=== PATIENT | male | born 1955 | race Caucasian/White ===

== ENCOUNTER 2017-11-24 10:54 | Emergency (ER) | payer MEDICARE, MEDICAID ==
[~2017-11-24] VITALS: Ht 185.4 cm; Wt 81.0 kg
[~2017-11-24 10:54] MED LIST: BLOO1EAC70 MC; BUDE10.23 IH; LANTUS SQ; METF-517 PO; METH4TAB3 PO; METH500T PO; [UNRECOGNIZED DRUG - CODE]
[2017-11-24] MEDS ORDERED: ondansetron/PF 4mg/2ml inj IV ONE (11:05)
[2017-11-24] MEDS ORDERED: normal saline 1000ML IV soln IVB ONE (11:05)
[2017-11-24] MEDS ORDERED: INSU100V12 SQ (11:26)
[2017-11-24 11:39] LABS: BASOPHILS % (AUTO) 0.4 % (0-1); EOSINOPHILS # (AUTO) 0.1 X10'3 (0-0.9); EOSINOPHILS % (AUTO) 0.7 % (0-6); HEMATOCRIT 43.4 % (42.0-52.0); HEMOGLOBIN 14.8 g/dl (14.0-17.9); LYMPHOCYTES # (AUTO) 0.7 X10'3 (1.1-4.8); LYMPHOCYTES % (AUTO) 7.3 % (21-51); MEAN CORPUSCULAR HEMOGLOBIN 30.1 PG (27.0-31.0); MEAN CORPUSCULAR HGB CONC 34.2 % (33.0-36.5); MEAN CORPUSCULAR VOLUME 87.9 FL (78-98); MEAN PLATELET VOLUME 9.5 FL (7.4-10.4); MONOCYTES # (AUTO) 0.7 X10'3 (0-0.9); MONOCYTES % (AUTO) 7.4 % (2-12); NEUTROPHILS # (AUTO) 7.6 X10'3 (1.8-7.7); NEUTROPHILS % (AUTO) 84.2 % (42-75); PLATELET COUNT 74 X10'3 (140-440); RED BLOOD COUNT 4.93 X10'6 (4.70-6.10); RED CELL DISTRIBUTION WIDTH 13.7 % (11.5-14.5)
[2017-11-24 11:46] LABS: CLARITY,URINE CLOUDY (Clear); COLOR,URINE YELLOW (Yellow); GLUCOSE, URINE 250 mg/dl (Neg); KETONES,URINE NEGATIVE (Neg); LEUKOCYTE ESTERASE ,URINE MODERATE (Neg); NITRITES, URINE POSITIVE (Neg); OCCULT BLOOD,URINE LARGE (Neg); PROTEIN,URINE 100 mg/dl (Neg)
[2017-11-24 11:52] LABS: ALANINE AMINOTRANSFERASE 71 U/L (12-78); ALBUMIN 2.9 G/DL (3.4-5.0); ALBUMIN/GLOBULIN RATIO 0.7 (1.1-1.5); ALKALINE PHOSPHATASE 194 IU/L (46-116); ANION GAP 8 (8-16); ASPARTATE AMINO TRANSFERASE 41 U/L (10-37); BILIRUBIN,TOTAL 2.1 MG/DL (0.1-1.0); BLOOD UREA NITROGEN 12 MG/DL (7-18); BUN/CREATININE RATIO 17.1 (5.4-32.0); CALCIUM 8.7 MG/DL (8.5-10.1); CHLORIDE 97 MMOL/L (99-107); GLUCOSE 276 MG/DL (70-104); LIPASE 150 U/L (73-393); SODIUM 133 MMOL/L (135-145); TOTAL CARBON DIOXIDE 28.3 MMOL/L (24-32); TOTAL PROTEIN 7.2 G/DL (6.4-8.2); eGFR > 90 ML/MIN
[2017-11-24 11:55] LABS: UA COLLECTION TYPE CLN CATCH MIDSTREAM
[2017-11-24 11:58] LABS: BACTERIA,URINE 4+ /HPF (Neg); SQUAMOUS EPITHELIAL CELL,UR FEW /LPF (FEW)
[2017-11-24 11:59] LABS: WBC,URINE TNTC /HPF (0-4)
[2017-11-24] MEDS ORDERED: CefTRIAXone 2gm/NS 100ml IVPB 100 ML IV ONE (12:00)
[2017-11-24 12:02] LABS: GIANT PLATELET FEW; LARGE PLATELETS FEW; PLATELET ESTIMATE DECREASED
[2017-11-24] MEDS ORDERED: HYDR-3965 PO (12:55)
[2017-11-24] MEDS ORDERED: CEPH500C5 PO (12:55)
[2017-11-24] MEDS ORDERED: ONDA4TAB12 PO (12:55)
[2017-11-24 13:05] VITALS: BP 139/69
== END 2017-11-24 13:25 | disposition home or self-care (01) ==
LOC: ER 10:54
DX: N12 Tubulo-interstitial nephritis, not specified as acute or chronic (principal); J44.9 Chronic obstructive pulmonary disease, unspecified; E11.9 Type 2 diabetes mellitus without complications; Z86.14 Personal history of Methicillin resistant Staphylococcus aureus infection; Z87.891 Personal history of nicotine dependence; Z90.49 Acquired absence of other specified parts of digestive tract; Z79.4 Long term (current) use of insulin; Z79.84 Long term (current) use of oral hypoglycemic drugs
CPT/HCPCS: 36415; 74176; 80053; 81001; 83690; 85025; 87077; 87088; 87186; 96361; 96365; 96375; 99285; J0696; J2270; J2405

== ENCOUNTER 2017-12-20 18:55 | Emergency (ER) | payer MEDICARE, MEDICAID ==
[~2017-12-20] VITALS: Ht 185.4 cm; Wt 84.0 kg
[~2017-12-20 18:55] MED LIST changes: -BUDE10.23 IH; +CEPH500C5 PO; +HYDR-3965 PO; +INSU100V12 SQ; -LANTUS SQ; -METH4TAB3 PO; -METH500T PO; +ONDA4TAB12 PO
[2017-12-20] MEDS ORDERED: ondansetron 4mg rapidly disintigrating tab PO ONE (20:15)
[2017-12-20] MEDS ORDERED: acetaminophen 325mg tablet PO ONE (20:15)
[2017-12-20] MEDS ORDERED: HYDR-3965 PO (20:56)
[2017-12-20] MEDS ORDERED: METH500T PO (20:56)
[2017-12-20] MEDS ORDERED: ONDA4TAB9 SL (20:56)
[2017-12-20 21:03] VITALS: BP 124/97
== END 2017-12-20 21:06 | disposition home or self-care (01) ==
LOC: ER 18:56
DX: S06.0X9A Concussion with loss of consciousness of unspecified duration, initial encounter (principal); S20.211A Contusion of right front wall of thorax, initial encounter; J44.9 Chronic obstructive pulmonary disease, unspecified; F32.9 Major depressive disorder, single episode, unspecified; E11.9 Type 2 diabetes mellitus without complications; M54.2 Cervicalgia; M79.604 Pain in right leg; M25.511 Pain in right shoulder; Z86.19 Personal history of other infectious and parasitic diseases; Z79.4 Long term (current) use of insulin; Y08.89XA Assault by other specified means, initial encounter; Y93.01 Activity, walking, marching and hiking; Y92.89 Other specified places as the place of occurrence of the external cause; Y99.8 Other external cause status
CPT/HCPCS: 70450; 71101; 99284

== ENCOUNTER 2018-10-02 12:25 | Emergency (ER) | payer MEDICARE, MEDICAID ==
[~2018-10-02] VITALS: Ht 185.4 cm; Wt 79.0 kg
[~2018-10-02 12:25] MED LIST changes: -HYDR-3965 PO; +METH500T PO
[2018-10-02 13:50] VITALS: BP 129/90
[2018-10-02] MEDS ORDERED: silver nitrate applicator stick TP ONE (14:30)
[2018-10-02] MEDS ORDERED: SULF1TAB49 PO (14:47)
== END 2018-10-02 15:00 | disposition home or self-care (01) ==
LOC: ER 12:26
DX: L08.9 Local infection of the skin and subcutaneous tissue, unspecified (principal); J44.9 Chronic obstructive pulmonary disease, unspecified; E11.9 Type 2 diabetes mellitus without complications; Z56.0 Unemployment, unspecified; Z90.49 Acquired absence of other specified parts of digestive tract; Z98.890 Other specified postprocedural states; Z86.14 Personal history of Methicillin resistant Staphylococcus aureus infection; Z79.4 Long term (current) use of insulin
CPT/HCPCS: 99284

== ENCOUNTER 2018-10-26 14:09 | Emergency (ER) | payer MEDICARE, MEDICAID ==
[~2018-10-26] VITALS: Ht 185.4 cm; Wt 63.0 kg
[2018-10-26] MEDS ORDERED: SULF1TAB49 PO (15:08)
[2018-10-26 15:15] VITALS: BP 146/83
[2018-10-26 15:43] LABS: CLARITY,URINE CLEAR (Clear); COLOR,URINE YELLOW (Yellow); GLUCOSE, URINE >=1000 mg/dl (Neg); KETONES,URINE NEGATIVE (Neg); LEUKOCYTE ESTERASE ,URINE NEGATIVE (Neg); NITRITES, URINE NEGATIVE (Neg); OCCULT BLOOD,URINE NEGATIVE (Neg); PROTEIN,URINE NEGATIVE (Neg); UROBILINOGEN,URINE 0.2 E.U/dL (0.2-1.0)
[2018-10-26 15:45] LABS: UA COLLECTION TYPE CLN CATCH MIDSTREAM
[2018-10-26 15:47] LABS: BACTERIA,URINE NONE SEEN /HPF (Neg); MUCUS STRANDS NONE SEEN /LPF (Neg); RBC,URINE 0-2 /HPF (0-2); SQUAMOUS EPITHELIAL CELL,UR NONE SEEN /LPF (FEW); WBC,URINE 0-4 /HPF (0-4)
== END 2018-10-26 15:16 | disposition home or self-care (01) ==
LOC: ER 14:10
DX: L08.89 Other specified local infections of the skin and subcutaneous tissue (principal); N50.89 Other specified disorders of the male genital organs; J44.9 Chronic obstructive pulmonary disease, unspecified; B19.20 Unspecified viral hepatitis C without hepatic coma; E11.9 Type 2 diabetes mellitus without complications; Z86.14 Personal history of Methicillin resistant Staphylococcus aureus infection; Z90.49 Acquired absence of other specified parts of digestive tract; Z98.890 Other specified postprocedural states; Z56.0 Unemployment, unspecified; Z79.4 Long term (current) use of insulin; Z79.899 Other long term (current) drug therapy
CPT/HCPCS: 81001; 99283

== ENCOUNTER 2018-12-23 07:29 | Day surgery (SDC) | payer MEDICARE, MEDICAID ==
[2018-12-21 11:35] LABS: BASOPHILS % (AUTO) 1.1 % (0-1); EOSINOPHILS # (AUTO) 0.1 X10'3 (0-0.9); EOSINOPHILS % (AUTO) 2.6 % (0-6); HEMATOCRIT 42.8 % (42.0-52.0); HEMOGLOBIN 14.9 g/dl (14.0-17.9); LYMPHOCYTES # (AUTO) 0.4 X10'3 (1.1-4.8); MEAN CORPUSCULAR HEMOGLOBIN 30.4 PG (27.0-31.0); MEAN CORPUSCULAR HGB CONC 34.9 % (33.0-36.5); MEAN CORPUSCULAR VOLUME 87.1 FL (78-98); MEAN PLATELET VOLUME 9.6 FL (7.4-10.4); MONOCYTES # (AUTO) 0.2 X10'3 (0-0.9); MONOCYTES % (AUTO) 6.5 % (2-12); NEUTROPHILS % (AUTO) 73.8 % (42-75); PLATELET COUNT 57 X10'3 (140-440); RED BLOOD COUNT 4.91 X10'6 (4.70-6.10); RED CELL DISTRIBUTION WIDTH 13.6 % (11.5-14.5); WHITE BLOOD COUNT 2.8 X10'3 (4.5-11.0)
[2018-12-21 11:37] LABS: ALANINE AMINOTRANSFERASE 100 U/L (12-78); ALBUMIN 3.2 G/DL (3.4-5.0); ALBUMIN/GLOBULIN RATIO 0.8 (1.1-1.5); ALKALINE PHOSPHATASE 157 IU/L (46-116); ANION GAP 9 (8-16); ASPARTATE AMINO TRANSFERASE 69 U/L (10-37); BILIRUBIN,TOTAL 0.9 MG/DL (0.1-1.0); BLOOD UREA NITROGEN 15 MG/DL (7-18); BUN/CREATININE RATIO 21.4 (5.4-32.0); CALCIUM 8.9 MG/DL (8.5-10.1); CHLORIDE 100 MMOL/L (99-107); GLUCOSE 393 MG/DL (70-104); PARTIAL THROMBOPLASTIN TIME 25 SECONDS (22-32); POTASSIUM 3.9 MMOL/L (3.5-5.1); PROTHROMBIN TIME 10.4 SECONDS (9.0-12.0); SODIUM 137 MMOL/L (135-145); TOTAL CARBON DIOXIDE 28.2 MMOL/L (24-32); TOTAL PROTEIN 7.2 G/DL (6.4-8.2); eGFR > 90 ML/MIN
[2018-12-21 11:55] LABS: PLATELET ESTIMATE DECREASED; TOTAL CELLS COUNTED 100
[2018-12-23] VITALS (11 sets, daily range): BP systolic 116–148; BP diastolic 71–98
[~2018-12-23] VITALS: Ht 185.4 cm; Wt 84.4 kg
[~2018-12-23 07:29] MED LIST changes: -CEPH500C5 PO
[2018-12-23] MEDS ORDERED: fentaNYL/PF 50MCG/1 ML 2ML syringe ONE (09:34)
[2018-12-23] MEDS ORDERED: iohexol 350 MG/ML 50ML vial IV ONE (09:34)
[2018-12-23] MEDS ORDERED: midazolam 2 mg/2 ml injection ONE ×2 (09:34→10:27)
[2018-12-23] MEDS ORDERED: iohexol 350MG/ML 100ml bottle IV ONE (09:34)
[2018-12-23] MEDS ORDERED: LIDOcaine 1% (10mg/ml)w/preservative injection 20ml MDV ONE (09:35)
[2018-12-23] MEDS ORDERED: insulin Lispro (HumaLOG) vial - multi-dose SQ SCH (09:45)
[2018-12-23] MEDS ORDERED: dextrose ORAL solution 15 GM/59 ML bottle PO PRN ×2 (09:45)
[2018-12-23] MEDS ORDERED: nitroGLYCERIN 0.4mg SUBLingual tab SL PRN (09:45)
[2018-12-23] MEDS ORDERED: dextrose 50%-water 50ml dispensing syringe IV PRN ×2 (09:45)
[2018-12-23] MEDS ORDERED: LORazepam 0.5 MG tablet PO PRN (09:45)
[2018-12-23] MEDS ORDERED: insulin regular, human vial - multi-dose SQ SCH (09:45)
[2018-12-23] MEDS ORDERED: diphenhydrAMINE 25mg capsule PO PRN (09:45)
[2018-12-23] MEDS ORDERED: normal saline 1000ml 1,000 ML IV SCH (09:45)
[2018-12-23] MEDS ORDERED: glucagon, human recombinant 1mg kit SUBCUT PRN (09:45)
[2018-12-23] MEDS ORDERED: METO-539 PO (10:09)
[2018-12-23] MEDS ORDERED: ACET-2119 PO (10:09)
[2018-12-23] MEDS ORDERED: INSU100V12 SQ (10:09)
[2018-12-23] MEDS ORDERED: metoprolol tartrate 1mg/ml inj IV ONE (10:09)
[2018-12-23] MEDS ORDERED: HYDROcodone/acetaminophen 5mg/325mg tablet PO PRN (11:20)
[2018-12-23] MEDS ORDERED: HYDROcodone/acetaminophen 10/325mg tab PO PRN (11:20)
[2018-12-23] MEDS ORDERED: ondansetron/PF 4mg/2ml inj IV PRN (11:20)
[2018-12-23] MEDS ORDERED: OXAZEpam 15mg capsule PO PRN (11:20)
[2018-12-23] MEDS ORDERED: sodium chloride 0.45% 1,000 ML IV ONE (11:20)
[2018-12-23] MEDS ORDERED: proCHLORperazine 10 MG/2 ml inj IV PRN (11:20)
--- NOTE | 2018-12-23 13:58 | NUR ---
CORRECTION, CHECKED PT BS BASED ON TIME SCHEDULE BUT BS WAS NOT DUE. NO INSULIN ADMINISTERED AT THIS TIME DUE TO PT ATE ONLY 45 MIN AGO AND ADMINISTRATION OF HUMULIN WAS GIVEN AT 1140.
[2018-12-23] MEDS ORDERED: insulin glargine (Lantus) pen - multi-dose SQ SCH (21:00)
== END 2018-12-23 16:55 | disposition home or self-care (01) ==
LOC: SSTAY O 07:29
PROVIDERS: ATTEND Internal Medicine Cardiovascular Disease
DX: I25.10 Atherosclerotic heart disease of native coronary artery without angina pectoris (principal); I42.8 Other cardiomyopathies; E11.9 Type 2 diabetes mellitus without complications; J44.9 Chronic obstructive pulmonary disease, unspecified; I47.1 Supraventricular tachycardia; I77.810 Thoracic aortic ectasia; N49.2 Inflammatory disorders of scrotum; M47.819 Spondylosis without myelopathy or radiculopathy, site unspecified; F10.21 Alcohol dependence, in remission; F32.9 Major depressive disorder, single episode, unspecified; Z79.4 Long term (current) use of insulin; Z87.891 Personal history of nicotine dependence; Z90.49 Acquired absence of other specified parts of digestive tract; Z79.84 Long term (current) use of oral hypoglycemic drugs; Z86.14 Personal history of Methicillin resistant Staphylococcus aureus infection; Z86.19 Personal history of other infectious and parasitic diseases; Z79.891 Long term (current) use of opiate analgesic; Z79.899 Other long term (current) drug therapy; Z98.890 Other specified postprocedural states
CPT/HCPCS: 36415; 71046; 80053; 82948; 83880; 85025; 85610; 85730; 93458; 99152; 99153; C1760; J1644; J2001; J2250; J3010; Q0163; Q9967; A4620; C1769; J1815; J3490; J7030

== ENCOUNTER 2019-01-12 16:03 | Emergency (ER) | payer MEDICARE, MEDICAID ==
[~2019-01-12] VITALS: Ht 185.4 cm; Wt 81.4 kg
[~2019-01-12 16:03] MED LIST changes: +ACET-2119 PO; -BLOO1EAC70 MC; -METH500T PO; +METO-539 PO; -ONDA4TAB12 PO; -[UNRECOGNIZED DRUG - CODE]
[2019-01-12 16:13] VITALS: BP 127/95
[2019-01-12 17:24] LABS: BASOPHILS # (AUTO) 0.1 X10'3 (0-0.2); BASOPHILS % (AUTO) 1.1 % (0-1); EOSINOPHILS # (AUTO) 0.1 X10'3 (0-0.9); EOSINOPHILS % (AUTO) 1.1 % (0-6); HEMATOCRIT 40.6 % (42.0-52.0); HEMOGLOBIN 14.1 g/dl (14.0-17.9); LYMPHOCYTES # (AUTO) 0.7 X10'3 (1.1-4.8); LYMPHOCYTES % (AUTO) 11.8 % (21-51); MEAN CORPUSCULAR HEMOGLOBIN 29.6 PG (27.0-31.0); MEAN CORPUSCULAR HGB CONC 34.8 g/dL (33.0-36.5); MEAN CORPUSCULAR VOLUME 85.2 FL (78-98); MEAN PLATELET VOLUME 9.3 FL (7.4-10.4); MONOCYTES # (AUTO) 0.4 X10'3 (0-0.9); MONOCYTES % (AUTO) 7.4 % (2-12); NEUTROPHILS # (AUTO) 4.5 X10'3 (1.8-7.7); NEUTROPHILS % (AUTO) 78.6 % (42-75); PLATELET COUNT 83 X10'3 (140-440); RED BLOOD COUNT 4.77 X10'6 (4.70-6.10); RED CELL DISTRIBUTION WIDTH 13.5 % (11.5-14.5); WHITE BLOOD COUNT 5.7 X10'3 (4.5-11.0)
[2019-01-12 17:26] LABS: INR 1.1 INR; PARTIAL THROMBOPLASTIN TIME 25 SECONDS (22-32); PROTHROMBIN TIME 10.7 SECONDS (9.0-12.0)
[2019-01-12 17:36] LABS: ALANINE AMINOTRANSFERASE 52 U/L (12-78); ALBUMIN 2.9 G/DL (3.4-5.0); ALBUMIN/GLOBULIN RATIO 0.7 (1.1-1.5); ALKALINE PHOSPHATASE 158 IU/L (46-116); ANION GAP 10 (8-16); ASPARTATE AMINO TRANSFERASE 43 U/L (10-37); BILIRUBIN,TOTAL 1.3 MG/DL (0.1-1.0); BLOOD UREA NITROGEN 14 MG/DL (7-18); BUN/CREATININE RATIO 20.9 (5.4-32.0); CALCIUM 8.6 MG/DL (8.5-10.1); CHLORIDE 101 MMOL/L (99-107); CREATININE 0.67 MG/DL (0.60-1.10); GLUCOSE 173 MG/DL (70-104); POTASSIUM 3.4 MMOL/L (3.5-5.1); SODIUM 138 MMOL/L (135-145); TOTAL CARBON DIOXIDE 27.4 MMOL/L (24-32); TOTAL PROTEIN 7.2 G/DL (6.4-8.2); eGFR > 90 ML/MIN
[2019-01-12] MEDS ORDERED: LEVO500T2 PO (17:47)
[2019-01-12] MEDS ORDERED: SULF1TAB49 PO (17:47)
[2019-01-12] MEDS ORDERED: levoFLOXACIN 250mg tablet PO ONE (17:50)
[2019-01-12] MEDS ORDERED: sulfamethoxazole/trimethoprim DS (800/160mg) tablet PO ONE (17:50)
== END 2019-01-12 18:23 | disposition home or self-care (01) ==
LOC: ER 16:04
DX: E11.621 Type 2 diabetes mellitus with foot ulcer (principal); L97.519 Non-pressure chronic ulcer of other part of right foot with unspecified severity; L03.115 Cellulitis of right lower limb; J44.9 Chronic obstructive pulmonary disease, unspecified; Z79.4 Long term (current) use of insulin; Z90.49 Acquired absence of other specified parts of digestive tract; Z56.0 Unemployment, unspecified
CPT/HCPCS: 36415; 71045; 80053; 83605; 84145; 85025; 85610; 85730; 87040; 99284

== ENCOUNTER 2019-06-14 21:22 | Emergency (ER) | payer MEDICARE, MEDICAID ==
[~2019-06-14] VITALS: Ht 185.4 cm; Wt 79.5 kg
[2019-06-14 22:28] VITALS: BP 148/78
--- NOTE | 2019-06-14 23:30 | NUR ---
Pt. at nursing station reporting he is going to [facility], reported to Provider. Pt being evaluated currently.
== END 2019-06-15 00:12 | disposition left against medical advice (07) ==
LOC: ER 21:23
DX: S40.012A Contusion of left shoulder, initial encounter (principal); S80.812A Abrasion, left lower leg, initial encounter; J44.9 Chronic obstructive pulmonary disease, unspecified; E11.9 Type 2 diabetes mellitus without complications; F32.9 Major depressive disorder, single episode, unspecified; Z86.14 Personal history of Methicillin resistant Staphylococcus aureus infection; Z79.4 Long term (current) use of insulin; Z79.84 Long term (current) use of oral hypoglycemic drugs; Z79.899 Other long term (current) drug therapy; Z90.49 Acquired absence of other specified parts of digestive tract; Z98.890 Other specified postprocedural states; Z87.891 Personal history of nicotine dependence; Z56.0 Unemployment, unspecified; V19.9XXA Pedal cyclist (driver) (passenger) injured in unspecified traffic accident, initial encounter; Y93.89 Activity, other specified; Y92.89 Other specified places as the place of occurrence of the external cause; Y99.8 Other external cause status
CPT/HCPCS: 99284

== ENCOUNTER 2019-10-01 23:04 | Emergency (ER) | payer MEDICARE, MEDICAID ==
[~2019-10-01] VITALS: Ht 185.4 cm; Wt 67.3 kg
[2019-10-02] MEDS ORDERED: CEPH250T PO (00:16)
[2019-10-02 00:30] VITALS: BP 131/83
== END 2019-10-02 01:06 | disposition home or self-care (01) ==
LOC: ER 23:04
DX: L08.89 Other specified local infections of the skin and subcutaneous tissue (principal); F45.21 Hypochondriasis; J44.9 Chronic obstructive pulmonary disease, unspecified; E11.9 Type 2 diabetes mellitus without complications; Z86.14 Personal history of Methicillin resistant Staphylococcus aureus infection; Z98.890 Other specified postprocedural states; Z90.49 Acquired absence of other specified parts of digestive tract; Z56.0 Unemployment, unspecified; Z86.19 Personal history of other infectious and parasitic diseases; Z79.4 Long term (current) use of insulin; Z79.899 Other long term (current) drug therapy
CPT/HCPCS: 99283

== ENCOUNTER 2020-04-28 19:52 | Emergency (ER) | payer MEDICARE, MEDICAID ==
[~2020-04-28] VITALS: Ht 185.4 cm; Wt 84.1 kg
[2020-04-28 19:55] VITALS: BP 109/61
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
[2020-04-28] MEDS ORDERED: ketorolac tromethamine 15mg/ml inj. IM ONE (21:25)
--- NOTE | 2020-04-28 21:52 | NUR ---
JESICA LEO TO REPORT [facility] CASE# [id number]
[2020-04-28] MEDS ORDERED: AMOX-580 PO (22:19)
== END 2020-04-28 22:31 | disposition home or self-care (01) ==
LOC: ER 19:54
DX: S02.92XA Unspecified fracture of facial bones, initial encounter for closed fracture (principal); R51 Headache; M25.531 Pain in right wrist; M25.532 Pain in left wrist; J44.9 Chronic obstructive pulmonary disease, unspecified; F32.9 Major depressive disorder, single episode, unspecified; E11.9 Type 2 diabetes mellitus without complications; Z86.19 Personal history of other infectious and parasitic diseases; Z86.14 Personal history of Methicillin resistant Staphylococcus aureus infection; Z90.89 Acquired absence of other organs; Z90.49 Acquired absence of other specified parts of digestive tract; Z98.890 Other specified postprocedural states; Z56.0 Unemployment, unspecified; Z79.2 Long term (current) use of antibiotics; Z79.4 Long term (current) use of insulin; Z79.899 Other long term (current) drug therapy; X58.XXXA Exposure to other specified factors, initial encounter; Y93.89 Activity, other specified; Y92.89 Other specified places as the place of occurrence of the external cause; Y99.8 Other external cause status
CPT/HCPCS: 70450; 70486; 73090; 73110; 96372; 99285; J1885

== ENCOUNTER 2021-08-11 14:54 | Emergency (ER) | payer MEDICARE, MEDICAID ==
[~2021-08-11] VITALS: Ht 185.4 cm; Wt 89.3 kg
[2021-08-11 15:03] VITALS: BP 143/85
[2021-08-11] MEDS ORDERED: CEPH250T PO (15:46)
[2021-08-11] MEDS ORDERED: SULF1TAB45 PO (15:46)
== END 2021-08-11 15:52 | disposition home or self-care (01) ==
LOC: ER 14:55
DX: L97.529 Non-pressure chronic ulcer of other part of left foot with unspecified severity (principal); J44.9 Chronic obstructive pulmonary disease, unspecified; E11.9 Type 2 diabetes mellitus without complications; Z48.00 Encounter for change or removal of nonsurgical wound dressing; Z86.19 Personal history of other infectious and parasitic diseases; Z98.890 Other specified postprocedural states; Z98.49 Cataract extraction status, unspecified eye; Z56.0 Unemployment, unspecified; Z79.2 Long term (current) use of antibiotics; Z79.899 Other long term (current) drug therapy
CPT/HCPCS: 99283

== ENCOUNTER 2021-08-11 20:14 | Emergency (ER) | payer MEDICARE, MEDICAID ==
[~2021-08-11] VITALS: Ht 185.4 cm; Wt 89.1 kg
[~2021-08-11 20:14] MED LIST changes: +CEPH250T PO; +SULF1TAB45 PO
[2021-08-11 20:17] VITALS: BP 114/63
== END 2021-08-11 22:13 | disposition home or self-care (01) ==
LOC: ER 20:15
DX: R53.1 Weakness (principal); J44.9 Chronic obstructive pulmonary disease, unspecified; E11.9 Type 2 diabetes mellitus without complications; Z86.14 Personal history of Methicillin resistant Staphylococcus aureus infection; Z90.49 Acquired absence of other specified parts of digestive tract; Z98.890 Other specified postprocedural states; Z56.0 Unemployment, unspecified; Z59.0 Homelessness; Z79.899 Other long term (current) drug therapy
CPT/HCPCS: 93005; 99283